=== PATIENT | male | born 1975 | race Caucasian/White ===

== ENCOUNTER 2017-06-19 21:55 | Inpatient (IN) | payer OTHER ==
--- NOTE | 2017-06-19 22:17 | Emergency Department Report ---
ED Abdominal Pain HPI - General Stated Complaint: KIDNEY STONES Time Seen by Provider: 06/19/17 22:09 Source: patient, old records reviewed (see hpi) Mode of arrival: Stretcher Limitations: No Limitations - History of Present Illness Initial Comments: 41-year-old male with a past medical history hypertension and recent diagnosis of left-sided kidney stone presented to the hospital after transfer from [facility] for retained stones and worsening pain. Yesterday patient was treated at [facility] (outpatient procedure) by [place] [facility] with lithotripsy. Today he presented to [place] with complaint of inability to urinate since 8 AM and left flank pain at 6 AM. No nausea, vomiting or fever reported. Patient was seen and treated at [facility] and accepted for transfer to [facility] after acceptance by Dr. Burris. See results of ED work up below. Patient complained of 10/10 left lower quadrant pain that is constant and requesting additional pain medicine. Patient states he has a sensitivity to codeine but can tolerate morphine and Dilaudid. Patient was seen at [facility] with complaint of left flank pain 6 this a.m. and hasn't urinated since 8 AM.. Patient received Pierce catheter, 1 L normal saline, Received multiple doses of Zofran, Demerol, and Stadol for pain. At 17:26 patient received Rocephin 1 g IV. Other provided results Labs from 06/19/2017 at 14:20 WBC 20.5 Hemoglobin 15.9 Hematocrit 47.1 Platelets 282 UA brown in color, cloudy, 1+ bilirubin, 1+ ketones, specific gravity 1.030, 3+ blood, pH 6.0, protein 2+. Nitrite negative, leukocyte esterase negative, WBC none, no bacteria were seen, no epithelial cells were seen. CMP Sodium 142, potassium 3.7, chloride 107, carbon dioxide 26, anion gap 9, glucose 143, BUN 11, creatinine 1.0, LFTs in normal range CT abdomen and pelvis without contrast impression: Nonobstructing calculus in the lower pole of the left kidney. Calcific debris from the left renal pelvis. Left hydronephrosis and hydroureter. Calcific debris in the left ureter at the pelvic inlet. Multiple calculi in the distal left ureter consistent steinstrasse. Ureter is dilated to the UVJ. Calculus at the left UVJ or just within the urinary bladder. Iperce catheter in place. - Related Data Allergies Allergy/AdvReac Type Severity Reaction Status Date / Time codeine Allergy Nausea Verified 06/19/17 22:23 ED Review of Systems ROS: Stated complaint: KIDNEY STONES Other details as noted in HPI Comment: All other systems reviewed and negative Other: Constitutional: No fevers chills Eyes: No eye pain visual changes ENT: No ear pain or throat pain Neck: Denies pain Respiratory: Denies cough wheezing shortness of breath Cardiovascular: Denies chest pain, palpitations, syncope GI: as per hpi : as per hpo Musculoskeletal: left flank pain Skin: Denies rash, lesions, erythema Neurologic: Denies headache, numbness, weakness Psychiatric: Denies suicidal ideation, hallucinations ED Physical Exam - Other Other exam information: General: No limitations, patient is alert in no acute distress Head exam: Atraumatic, normocephalic Eyes exam: Normal appearance ENT: Moist mucous membrane Neck exam: Normal inspection Respiratory exam: Clear to auscultation bilateral, no wheezes, rales, crackles Cardiovascular: Normal rate and rhythm, normal heart sounds Abdomen: Soft, nondistended, left lower quadrant tenderness Extremity: Full range of motion normal inspection no deformity Back: Normal Inspection, full range of motion, flank tenderness Neurologic: Alert, oriented x3, cranial nerves intact, no motor or sensory deficit Psychiatric: normal affect, normal mood Skin: Warm, dry, intact ED Course Vital Signs 06/19/17 06/19/17 22:05 22:10 Temperature 98.6 F Pulse Rate 79 116 H Respiratory 19 18 Rate Blood Pressure 166/107 Blood Pressure 166/107 [Right] O2 Sat by Pulse 97 97 Oximetry - Reevaluation(s) Reevaluation #1: 06/19/17 22:28 Dilaudid and Zofran ordered - Consultations Consultation #1: 06/19/17 22:[address] Burris urologist who has accepted patient. Requests admission to the hospitalist service. Requested nothing by mouth for possible stenting and a ED Medical Decision Making - Medical Decision Making Patient requires admission to the hospital for additional urology intervention given obstruction despite lithotripsy and significant leukocytosis. Patient received antibiotics prior to arrival. Urology has been consulted. Hospitalist informed. Patient treated for pain in the ED - Differential Diagnosis renal colic, obstructive uropathy, UTI, sepsis Critical Care Time: No Critical care attestation.: If time is entered above; I have spent that time in minutes in the direct care of this critically ill patient, excluding procedure time. ED Disposition Clinical Impression: Obstructive uropathy, Status post laser lithotripsy of ureteral calculus, Renal colic on left side, Leukocytosis, Urinary retention Disposition: OP ADMIT IP TO THIS HOSP Is pt being admited?: Yes Condition: Stable Time of Disposition: 22:40 (Dr Ty/[facility])
[2017-06-19] MEDS ORDERED: DILAUDID IV ONE ×2 (22:21→23:10)
[2017-06-19] MEDS ORDERED: ZOFRAN IV ONE (22:21)
[2017-06-19] MEDS ORDERED: DULCOLAX PR PRN (23:31)
[2017-06-19] MEDS ORDERED: TYLENOL PO PRN (23:31)
--- NOTE | 2017-06-19 23:31 | History and Physical Report ---
History of Present Illness Date of examination: 06/19/17 Date of admission: 06/19/17 Chief complaint: left flank pain History of present illness: patient is 41 year-old with history of hypertension with kidney stone. He had lithotripsy done yesterday at [facility] by a urologist as an outpatient. After he went home next day, which is today, started having more pain in the left flank and difficulty passing urine. He went to his local hospital [facility] . Over there a CT showed non-obstructing stone left kidney, left hydronephrosis and left hydroureter. The hospital called on urologist Dr. Burris, who then accepted patient to be transferred to the emergency department from [facility]. All labs and CT Abd report done today in paper chart so most not repeated. He cary be admitted. ED Physician discussed with Dr. Fatuma may. Past History Past Medical History: hypertension, other (Left kidney stone) Past Surgical History: Other (Lithotripsy 06/18/17) Social history: single, smoking, alcohol abuse (Alcohol occasionally), full code Family history: cancer, diabetes, hypertension Medications and Allergies Allergies Allergy/AdvReac Type Severity Reaction Status Date / Time codeine Allergy Nausea Verified 06/19/17 22:23 Active Meds: Active Medications Hydromorphone HCl (Dilaudid) 2 mg IV Q4HR PRN PRN Reason: Severe Pain Review of Systems All systems: negative (no fever, no headache, no nausea, no cough, or syncope. All other systems reviewed and are negative) Exam - Physical Exam Narrative exam: Gen Appearance: Not in acute distress, HEENT: normocephalic, atraumatic Neck: supple, no JVD Lungs: Clear to auscultation, bilaterally, no rales, no wheeze Heart: S1 and S2 regular, no murmurs,no rubs or gallop, Abdomen: Soft , tender left flank, non distended, normal bowel sounds Extremity: No edema, no clubbing or cyanosis, Neuro : Awake,alert, oriented x 3, moves all extremities - Constitutional Vitals: Temp Pulse Resp BP Pulse Ox 98.2 F 80 16 170/99 97 06/19/17 23:10 06/19/17 23:10 06/19/17 23:10 06/19/17 23:10 06/19/17 23:10 Results - Labs CBC & Chem 7: 06/19/17 23:45 06/19/17 23:37 Assessment and Plan Left renal colic with left kidney stone. Admit to medical surgical floor. Start IV fluids. Dilaudid IV when necessary for pain management. Dr. Burris consulted . Keep NPO after Midnight for likely surgery in morning. Left hydronephrosis due to renal stone.. Pierce catheter in . Left hydroureter. Urology to evaluate. UTI. Rocephin iv daily. He received a dose at [facility] before coming here today. Leukocytosis due to UTI. hypernatremia. start iv fluids Hypertensive urgency. Start Norvasc 5 mg by mouth daily. Give hydralazine iv prn. DVT prophylaxis. SCDs only. Not given anticoagulation because most likely going for surgery soon. Full CODE STATUS
[2017-06-19] MEDS ORDERED: APRESOLINE IV PRN (23:33)
[2017-06-20 00:10] LABS: Hematocrit 45.3 % (35.5-45.6); Hemoglobin 15.2 gm/dl (11.8-15.2); Mean Corpuscular HGB Conc 34 % (32-34); Mean Corpuscular Hemoglobin 32 pg (28-32); Mean Corpuscular Volume 96 fl (84-94); Platelet Count 272 K/mm3 (140-440); Red Blood Count 4.72 M/mm3 (3.65-5.03); Red Cell Distribution Width 13.4 % (13.2-15.2); White Blood Count 15.7 K/mm3 (4.5-11.0)
[2017-06-20] MEDS: NORVASC PO SCH ×2 (00:19→10:00)
[2017-06-20] MEDS ORDERED: NORVASC ONE (00:21)
[2017-06-20 00:27] LABS: Alanine Aminotransferase 8 units/L (7-56); Albumin 3.9 g/dL (3.9-5); Albumin/Globulin Ratio 1.4 %; Alkaline Phosphatase 83 units/L (35-129); Anion Gap 19 mmol/L; Blood Urea Nitrogen 11 mg/dL (9-20); Calcium 9.1 mg/dL (8.4-10.2); Carbon Dioxide 23 mmol/L (22-30); Chloride 108.2 mmol/L (98-107); Glucose 127 mg/dL (75-100); Potassium 3.9 mmol/L (3.6-5.0); Sodium 146 mmol/L (137-145); Total Protein 6.7 g/dL (6.3-8.2)
[2017-06-20] MEDS: DILAUDID IV PRN ×6 (01:17→21:49)
[2017-06-20] MEDS: D5/0.45NS 1,000 ML IV SCH ×2 (01:28→15:17)
[2017-06-20] MEDS: ZOFRAN IV PRN ×2 (05:15→17:35)
--- NOTE | 2017-06-20 08:11 | Progress Note ---
<TRINHIVAN GUADALUPE - Last Filed: 06/20/17 15:03> Assessment and Plan Assessment and plan: Left renal colic with left kidney stone. Admit to medical surgical floor. Keep NPO most likely will have surgery today. Continue on IV fluids. Dilaudid IV when necessary for pain management. Following by Urology Left hydronephrosis obstructive uropathy Secondary to renal stone. Continue Pierce catheter . Left hydroureter Follow by Urology . Urinary tract infection Follow cultures Continue on empiric treatment IV Rocephin iv daily. IV fluid hydration Supportive care Leukocytosis Secondary to UTI We will repeat BMP Closely monitor CBC hypernatremia Most likely due to poor intake Continue on IV fluid Closely monitor electrolytes Hypertensive urgency Continue on Norvasc 5 mg by mouth daily. IV hydralazine for SBP>160 Closely monitor blood pressure DVT prophylaxis SCDs only. Hold anticoagulation because most likely going for surgery soon. Full CODE STATUS Plan discussed with patient, family and his nurse. History Interval history: Patient complians left flank pain and rated his pain level 5/10. lab's and nurse notes reviewed. Hospitalist Physical - Constitutional Vitals: Temp Pulse Resp BP Pulse Ox 98.4 F 91 H 20 154/96 96 06/20/17 07:14 06/20/17 07:14 06/20/17 07:14 06/20/17 07:14 06/20/17 07:14 General appearance: Present: no acute distress - EENT Eyes: Present: PERRL ENT: hearing intact - Neck Neck: Present: supple - Respiratory Respiratory effort: normal Respiratory: bilateral: CTA - Cardiovascular Heart rate: 91 Rhythm: regular Heart Sounds: Present: S1 & S2 - Extremities Extremities: no ischemia Peripheral Pulses: within normal limits - Abdominal General gastrointestinal: soft, non-tender - Integumentary Integumentary: Present: clear, warm, dry - Psychiatric Psychiatric: appropriate mood/affect - Neurologic Neurologic: CNII-XII intact - Allied Health Allied health notes reviewed: nursing Results - Labs CBC & Chem 7: 06/19/17 23:45 06/19/17 23:37 Labs: Laboratory Last Values WBC 15.7 K/mm3 (4.5-11.0) H 06/19/17 23:45 RBC 4.72 M/mm3 (3.65-5.03) 06/19/17 23:45 Hgb 15.2 gm/dl (11.8-15.2) 06/19/17 23:45 Hct 45.3 % (35.5-45.6) 06/19/17 23:45 MCV 96 fl (84-94) H 06/19/17 23:45 MCH 32 pg (28-32) 06/19/17 23:45 MCHC 34 % (32-34) 06/19/17 23:45 RDW 13.4 % (13.2-15.2) 06/19/17 23:45 Plt Count 272 K/mm3 (140-440) 06/19/17 23:45 Sodium 146 mmol/L (137-145) H 06/19/17 23:37 Potassium 3.9 mmol/L (3.6-5.0) 06/19/17 23:37 Chloride 108.2 mmol/L (98-107) H 06/19/17 23:37 Carbon Dioxide 23 mmol/L (22-30) 06/19/17 23:37 Anion Gap 19 mmol/L 06/19/17 23:37 BUN 11 mg/dL (9-20) 06/19/17 23:37 Creatinine 1.0 mg/dL (0.8-1.5) 06/19/17 23:37 Estimated GFR > 60 ml/min 06/19/17 23:37 BUN/Creatinine Ratio 11.00 % 06/19/17 23:37 Glucose 127 mg/dL (75-100) H 06/19/17 23:37 Calcium 9.1 mg/dL (8.4-10.2) 06/19/17 23:37 Total Bilirubin 0.40 mg/dL (0.1-1.2) 06/19/17 23:37 AST 15 units/L (5-40) 06/19/17 23:37 ALT 8 units/L (7-56) 06/19/17 23:37 Alkaline Phosphatase 83 units/L (35-129) 06/19/17 23:37 Total Protein 6.7 g/dL (6.3-8.2) 06/19/17 23:37 Albumin 3.9 g/dL (3.9-5) 06/19/17 23:37 Albumin/Globulin Ratio 1.4 % 06/19/17 23:37 <ORION MORRISSEY - Last Filed: 06/20/17 16:08> Hospitalist Physical - Constitutional Vitals: Temp Pulse Resp BP Pulse Ox 98.2 F 85 18 154/96 97 06/20/17 11:26 06/20/17 11:26 06/20/17 11:26 06/20/17 07:14 06/20/17 11:26 Results - Labs CBC & Chem 7: 06/19/17 23:45 06/19/17 23:37 Labs: Laboratory Last Values WBC 15.7 K/mm3 (4.5-11.0) H 06/19/17 23:45 RBC 4.72 M/mm3 (3.65-5.03) 06/19/17 23:45 Hgb 15.2 gm/dl (11.8-15.2) 06/19/17 23:45 Hct 45.3 % (35.5-45.6) 06/19/17 23:45 MCV 96 fl (84-94) H 06/19/17 23:45 MCH 32 pg (28-32) 06/19/17 23:45 MCHC 34 % (32-34) 06/19/17 23:45 RDW 13.4 % (13.2-15.2) 06/19/17 23:45 Plt Count 272 K/mm3 (140-440) 06/19/17 23:45 Sodium 146 mmol/L (137-145) H 06/19/17 23:37 Potassium 3.9 mmol/L (3.6-5.0) 06/19/17 23:37 Chloride 108.2 mmol/L (98-107) H 06/19/17 23:37 Carbon Dioxide 23 mmol/L (22-30) 06/19/17 23:37 Anion Gap 19 mmol/L 06/19/17 23:37 BUN 11 mg/dL (9-20) 06/19/17 23:37 Creatinine 1.0 mg/dL (0.8-1.5) 06/19/17 23:37 Estimated GFR > 60 ml/min 06/19/17 23:37 BUN/Creatinine Ratio 11.00 % 06/19/17 23:37 Glucose 127 mg/dL (75-100) H 06/19/17 23:37 Calcium 9.1 mg/dL (8.4-10.2) 06/19/17 23:37 Total Bilirubin 0.40 mg/dL (0.1-1.2) 06/19/17 23:37 AST 15 units/L (5-40) 06/19/17 23:37 ALT 8 units/L (7-56) 06/19/17 23:37 Alkaline Phosphatase 83 units/L (35-129) 06/19/17 23:37 Total Protein 6.7 g/dL (6.3-8.2) 06/19/17 23:37 Albumin 3.9 g/dL (3.9-5) 06/19/17 23:37 Albumin/Globulin Ratio 1.4 % 06/19/17 23:37
[2017-06-20] MEDS: ROCEPHIN/NS 1 GM/50 ML 1 GM/50 ML BAG IV SCH (10:00)
--- NOTE | 2017-06-20 11:00 | Consultation ---
History of Present Illness - Reason for Consult Consult date: 06/20/17 - History of Present Illness 41-year-old male with a past medical history hypertension and recent diagnosis of left-sided kidney stone presented to the hospital after transfer from [facility] for retained stones and worsening pain. Yesterday patient was treated at [facility] (outpatient procedure) by [place] [facility] with lithotripsy. Today he presented to [place] with complaint of inability to urinate since 8 AM and left flank pain at 6 AM. No nausea, vomiting or fever reported. Patient was seen and treated at [facility] and accepted for transfer to [facility] after acceptance by Dr. Burris. See results of ED work up below. Patient complained of 10/10 left lower quadrant pain that is constant and requesting additional pain medicine. Patient states he has a sensitivity to codeine but can tolerate morphine and Dilaudid. Patient was seen at [facility] with complaint of left flank pain 6 this a.m. and hasn't urinated since 8 AM.. Patient received Pierce catheter, 1 L normal saline, Received multiple doses of Zofran, Demerol, and Stadol for pain. At 17:26 patient received Rocephin [address] Corey eLe in the office [facility] tuesday06-18-17 A/P control pain KUB may need repeat CTAP Past History Past Medical History: hypertension, other (Left kidney stone) Past Surgical History: Other (Lithotripsy 06/18/17) Social history: single, smoking, alcohol abuse (Alcohol occasionally), full code Family history: cancer, diabetes, hypertension Medications and Allergies Allergies Allergy/AdvReac Type Severity Reaction Status Date / Time codeine Allergy Nausea Verified 06/19/17 22:23 Active Meds: Active Medications Acetaminophen (Tylenol) 650 mg PO Q4H PRN PRN Reason: Pain MILD(1-3)/Fever >100.5/ROACH Amlodipine Besylate (Norvasc) 5 mg PO QDAY DESHAWN Last Admin: 06/20/17 00:19 Dose: 5 mg Bisacodyl (Dulcolax) 10 mg VT QDAY PRN PRN Reason: Constipation unrelieved by MOM Hydralazine HCl (Apresoline) 10 mg IV Q4HR PRN PRN Reason: For SBP>165 or DBP>105 Last Admin: 06/20/17 01:15 Dose: 10 mg Hydralazine HCl (Apresoline) 25 mg PO Q8HR DESHAWN Hydromorphone HCl (Dilaudid) 2 mg IV Q4HR PRN PRN Reason: Severe Pain Last Admin: 06/20/17 08:58 Dose: 2 mg Ceftriaxone Sodium (Rocephin/Ns 1 Gm/50 Ml) 1 gm in 50 mls @ 100 mls/hr IV Q24HR DESHAWN PRN Reason: Protocol Dextrose/Sodium Chloride (D5/0.45ns) 1,000 mls @ 75 mls/hr IV DIRECT DESHAWN Last Admin: 06/20/17 01:28 Dose: 75 mls/hr Ondansetron HCl (Zofran) 4 mg IV Q6H PRN PRN Reason: nausea or vomiting Last Admin: 06/20/17 05:15 Dose: 4 mg Exam - Constitutional Vitals: Temp Pulse Resp BP Pulse Ox 98.4 F 91 H 20 154/96 96 06/20/17 07:14 06/20/17 07:14 06/20/17 07:14 06/20/17 07:14 06/20/17 07:14 Results - Labs CBC & Chem 7: 06/19/17 23:45 06/19/17 23:37 Labs: Abnormal lab results 06/19/17 06/19/17 Range/Units 23:37 23:45 WBC 15.7 H (4.5-11.0) K/mm3 MCV 96 H (84-94) fl Sodium 146 H (137-145) mmol/L Chloride 108.2 H (98-107) mmol/L Glucose 127 H (75-100) mg/dL
--- NOTE | 2017-06-20 12:12 | XRay Report ---
SUPINE KUB: History: Flank pain. The abdominal gas pattern is unremarkable. No masses or organomegaly is identified and there is no gross evidence of free air or fluid. At least one calcification measuring 7 mm overlies the inferior pole of the left kidney consistent with left nephrolithiasis. IMPRESSION: Left nephrolithiasis.
--- NOTE | 2017-06-20 12:24 | Cat Scan Report ---
CT scan of abdomen and pelvis without IV contrast: History: Bilateral flank pain. Left kidney stone. Findings: Normal lung bases. No pleural or pericardial effusion. Normal liver spleen pancreas and gallbladder. Normal adrenals. There is nonobstructing 3 mm calculus left kidney. There is also noted tiny calculi in the pelvis of left ureter. Dilated left ureter with 2 calculi at the distal left ureter proximal to the bladder. Thick walled urinary bladder with in situ catheter. Calcification in prostate. Gaseous colon with stool in colon. No bowel distention. Free fluid in the peritoneum anterior to rectum. Impression: Nonobstructing calculi left kidney calculi with 2 calculi distal left ureter causing obstruction and hydronephrosis. Thick walled urinary bladder from decompression or cystitis.
[2017-06-20] MEDS: LEVAQUIN 500MG/100ML 500 MG/100 ML BAG IV SCH (12:35)
[2017-06-20] MEDS: APRESOLINE PO SCH ×3 (13:46→21:48)
[2017-06-21] MEDS ORDERED: WATER FOR IRRIG STERILE IR ONE
[2017-06-21] MEDS: DILAUDID IV PRN ×8 (02:14→21:58)
[2017-06-21] MEDS: ZOFRAN IV PRN ×2 (02:15→09:21)
[2017-06-21] MEDS: D5/0.45NS 1,000 ML IV SCH ×2 (04:55→23:20)
[2017-06-21] MEDS: APRESOLINE PO SCH ×3 (05:02→21:52)
[2017-06-21 05:20] LABS: Basophils % (Auto) 0.3 % (0.0-1.8); Eosinophils % (Auto) 0.1 % (0.0-4.3); Hematocrit 46.8 % (35.5-45.6); Hemoglobin 15.9 gm/dl (11.8-15.2); Mean Corpuscular HGB Conc 34 % (32-34); Mean Corpuscular Hemoglobin 32 pg (28-32); Mean Corpuscular Volume 95 fl (84-94); Platelet Count 240 K/mm3 (140-440); Red Blood Count 4.91 M/mm3 (3.65-5.03); Red Cell Distribution Width 13.4 % (13.2-15.2); White Blood Count 18.7 K/mm3 (4.5-11.0)
[2017-06-21 05:37] LABS: Anion Gap 16 mmol/L; BUN/Creatinine Ratio 11; Blood Urea Nitrogen 11 mg/dL (9-20); Calcium 9.4 mg/dL (8.4-10.2); Carbon Dioxide 25 mmol/L (22-30); Glucose 115 mg/dL (75-100)
[2017-06-21 07:29] LABS: Sodium 138 mmol/L (137-145)
[2017-06-21] MEDS: NORVASC PO SCH (09:22)
[2017-06-21] MEDS: ROCEPHIN/NS 1 GM/50 ML 1 GM/50 ML BAG IV SCH (10:00)
[2017-06-21] MEDS: LEVAQUIN 500MG/100ML 500 MG/100 ML BAG IV SCH (10:47)
--- NOTE | 2017-06-21 13:39 | Progress Note ---
Assessment and Plan Assessment and plan: Obstructive left ureteric calculi Ureteric colic Hydronephrosis Sepsis secondary to UTI Hypertensive urgency - Neurology is consulted and they willing to do surgery - Patient is on IV fluids, IV antibiotics, pain control DVT prophylaxis - SCDs, will start him on heparin after the procedure Disposition - Continue inpatient care History Interval history: Patient was seen and evaluated this morning, patient is complaining left-sided flank pain. Hospitalist Physical - Physical exam Narrative exam: Not in cardiopulmonary distress. The patient appeared well nourished and normally developed. Vital signs as documented. Head exam is unremarkable. No scleral icterus . Neck is without jugular venous distension, thyromegaly, or carotid bruits. Lungs are clear to auscultation. Cardiac exam reveals regular rate and Rhythm. First and second heart sounds normal. No murmurs, rubs or gallops. Abdominal exam reveals left flank and groin tenderness. Extremities are nonedematous and both femoral and pedal pulses are normal. [employer]: Alert and oriented 3. No focal weakness. - Constitutional Vitals: Temp Pulse Resp BP Pulse Ox 99.3 F 100 H 16 157/100 94 06/21/17 06:54 06/21/17 09:22 06/21/17 06:54 06/21/17 09:22 06/21/17 06:54 General appearance: Present: no acute distress Results - Labs CBC & Chem 7: 06/21/17 04:44 06/21/17 04:44 Labs: Laboratory Last Values WBC 18.7 K/mm3 (4.5-11.0) H 06/21/17 04:44 RBC 4.91 M/mm3 (3.65-5.03) 06/21/17 04:44 Hgb 15.9 gm/dl (11.8-15.2) H 06/21/17 04:44 Hct 46.8 % (35.5-45.6) H 06/21/17 04:44 MCV 95 fl (84-94) H 06/21/17 04:44 MCH 32 pg (28-32) 06/21/17 04:44 MCHC 34 % (32-34) 06/21/17 04:44 RDW 13.4 % (13.2-15.2) 06/21/17 04:44 Plt Count 240 K/mm3 (140-440) 06/21/17 04:44 Lymph % (Auto) 6.2 % (13.4-35.0) L 06/21/17 04:44 Boyd % (Auto) 12.8 % (0.0-7.3) H 06/21/17 04:44 Eos % (Auto) 0.1 % (0.0-4.3) 06/21/17 04:44 Baso % (Auto) 0.3 % (0.0-1.8) 06/21/17 04:44 Lymph # 1.2 K/mm3 (1.2-5.4) 06/21/17 04:44 Boyd # 2.4 K/mm3 (0.0-0.8) H 06/21/17 04:44 Eos # 0.0 K/mm3 (0.0-0.4) 06/21/17 04:44 Baso # 0.1 K/mm3 (0.0-0.1) 06/21/17 04:44 Seg Neutrophils % 80.6 % (40.0-70.0) H 06/21/17 04:44 Seg Neutrophils # 15.1 K/mm3 (1.8-7.7) H 06/21/17 04:44 Sodium 138 mmol/L (137-145) D 06/21/17 04:44 Potassium 4.0 mmol/L (3.6-5.0) 06/21/17 04:44 Chloride 101.0 mmol/L (98-107) 06/21/17 04:44 Carbon Dioxide 25 mmol/L (22-30) 06/21/17 04:44 Anion Gap 16 mmol/L 06/21/17 04:44 BUN 11 mg/dL (9-20) 06/21/17 04:44 Creatinine 1.0 mg/dL (0.8-1.5) 06/21/17 04:44 Estimated GFR > 60 ml/min 06/21/17 04:44 BUN/Creatinine Ratio 11 % 06/21/17 04:44 Glucose 115 mg/dL (75-100) H 06/21/17 04:44 Calcium 9.4 mg/dL (8.4-10.2) 06/21/17 04:44 Magnesium 1.70 mg/dL (1.7-2.3) 06/21/17 04:44 Total Bilirubin 0.40 mg/dL (0.1-1.2) 06/19/17 23:37 AST 15 units/L (5-40) 06/19/17 23:37 ALT 8 units/L (7-56) 06/19/17 23:37 Alkaline Phosphatase 83 units/L (35-129) 06/19/17 23:37 Total Protein 6.7 g/dL (6.3-8.2) 06/19/17 23:37 Albumin 3.9 g/dL (3.9-5) 06/19/17 23:37 Albumin/Globulin Ratio 1.4 % 06/19/17 23:37
[2017-06-21] MEDS ORDERED: ZOFRAN IV PRN (14:05)
[2017-06-21] MEDS ORDERED: DILAUDID IV NR (14:41)
--- NOTE | 2017-06-21 14:45 | Anesthesia Day of Surgery ---
Anesthesia Day of Surgery - Day of Surgery Patient Examined: Yes Patient H&P Reviewed: Yes Patient is NPO: Yes
--- NOTE | 2017-06-21 14:46 | Anesthesia Consultation ---
Anesthesia Consult and Med Hx Date of service: 06/21/17 - Airway Anesthetic Teeth Evaluation: Poor (missing top teeth) ROM Head & Neck: Adequate Mental/Hyoid Distance: Adequate Mallampati Class: Class II Intubation Access Assessment: Probably Good - Pulmonary Exam CTA: Yes - Cardiac Exam Cardiac Exam: RRR - Pre-Operative Health Status ASA Pre-Surgery Classification: ASA2 Proposed Anesthetic Plan: General - Pulmonary Hx Smoking: Yes (2 cigs/day) Hx Asthma: No COPD: No - Cardiovascular System Hx Hypertension: Yes Hx Heart Attack/AMI: No Hx Pacemaker: No Hx Internal Defibrillator: No - Central Nervous System Hx Seizures: No - Endocrine Hx Renal Disease: Yes (stones) Hx Liver Disease: No - Hematic Hx Sickle Cell Disease: No
[2017-06-21] MEDS ORDERED: NACL 0.9% 1000 ML 1,000 ML IV SCH (15:00)
[2017-06-21] MEDS ORDERED: VERSED IV NR (15:00)
[2017-06-21] MEDS ORDERED: PEPCID PO NR (15:00)
[2017-06-21] MEDS ORDERED: DECADRON ONE (15:00)
[2017-06-21] MEDS ORDERED: ZOFRAN ONE (15:00)
[2017-06-21] MEDS ORDERED: XYLOCAINE MPF 2% ONE (15:48)
[2017-06-21] MEDS ORDERED: DIPRIVAN 10 MG/ML IV ONE (15:48)
[2017-06-21] MEDS ORDERED: SUBLIMAZE ONE (15:48)
--- NOTE | 2017-06-21 17:01 | Post Operative Note ---
Pre-op diagnosis: LEFT URET STEINSTRASSE STONE Post-op diagnosis: same Findings: same, pur Procedure: left urs, stent, 6x28, brpg Anesthesia: GETA Surgeon: CARIE RALPH Estimated blood loss: minimal Specimen disposition: to lab Condition: stable Disposition: PACU
--- NOTE | 2017-06-21 17:20 | Post Anesthesia Evaluation ---
- Post Anesthesia Evaluation Patient Participated: Yes Airway Patent: Yes Stable Respiratory Function: Yes Nausea/Vomiting: No Temp > 96.8F: Yes Pain Manageable: Yes Adequeate Hydration: Yes Anesthesia Complications: No Block Receding Appropriately: Not Applicable Patient on Ventilator: No
[2017-06-22 06:08] LABS: Basophils % (Auto) 0.5 % (0.0-1.8); Hematocrit 40.7 % (35.5-45.6); Hemoglobin 14.3 gm/dl (11.8-15.2); Mean Corpuscular HGB Conc 35 % (32-34); Mean Corpuscular Hemoglobin 33 pg (28-32); Mean Corpuscular Volume 94 fl (84-94); Platelet Count 218 K/mm3 (140-440); Red Blood Count 4.33 M/mm3 (3.65-5.03); Red Cell Distribution Width 13.4 % (13.2-15.2); White Blood Count 14.2 K/mm3 (4.5-11.0)
[2017-06-22] MEDS: APRESOLINE PO SCH ×3 (06:08→21:12)
[2017-06-22 06:37] LABS: Anion Gap 17 mmol/L; BUN/Creatinine Ratio 11; Blood Urea Nitrogen 9 mg/dL (9-20); Calcium 9.2 mg/dL (8.4-10.2); Carbon Dioxide 24 mmol/L (22-30); Chloride 103.8 mmol/L (98-107); Glucose 113 mg/dL (75-100); Potassium 4.1 mmol/L (3.6-5.0); Sodium 141 mmol/L (137-145)
--- NOTE | 2017-06-22 09:53 | Fluoroscopy Report ---
RETROGRADE PYELOGRAM: History: Left ureteral stones. Findings: Fluoroscopy was provided by radiology during retrograde urography by urology. 10 fluoroscopic images were captured. The right pyelogram is normal. Subtle filling defects are identified in the left ureter consistent with mildly obstructing left ureteral stones. The stones were removed by the physician. Left ureteroscopy was performed. A left ureteral stent was placed which is in good position and adequately drains the left collecting system on the final image. Impression: Left ureteral stone removal. Left ureteral stent placement.
[2017-06-22] MEDS: DILAUDID IV PRN ×3 (10:19→21:03)
[2017-06-22] MEDS: LEVAQUIN 500MG/100ML 500 MG/100 ML BAG IV SCH (10:20)
[2017-06-22] MEDS: NORVASC PO SCH (10:20)
--- NOTE | 2017-06-22 14:03 | Progress Note ---
Assessment and Plan Assessment and plan: Obstructive left ureteric calculi - Status post left ureteric stone removal and stent placement Ureteric colic - Patient is controlled after the procedure Hydronephrosis Sepsis secondary to UTI - Patient is on IV antibiotics and WBCs trending down Hypertensive urgency - Controlled DVT prophylaxis -On heparin Disposition - Continue inpatient care, possible discharge tomorrow. History Interval history: Patient was seen and evaluated this morning, patient's pain is improved remarkably after surgery. Hospitalist Physical - Physical exam Narrative exam: Not in cardiopulmonary distress. The patient appeared well nourished and normally developed. Vital signs as documented. Head exam is unremarkable. No scleral icterus . Neck is without jugular venous distension, thyromegaly, or carotid bruits. Lungs are clear to auscultation. Cardiac exam reveals regular rate and Rhythm. First and second heart sounds normal. No murmurs, rubs or gallops. Abdominal exam reveals soft, non-tender. Extremities are nonedematous and both femoral and pedal pulses are normal. 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 No focal weakness. - Constitutional Vitals: Temp Pulse Resp BP Pulse Ox 98.9 F 102 H 18 153/85 94 06/22/17 07:49 06/22/17 07:49 06/22/17 07:49 06/22/17 07:49 06/22/17 07:49 General appearance: Present: no acute distress Results - Labs CBC & Chem 7: 06/22/17 05:55 06/22/17 05:55 Labs: Laboratory Last Values WBC 14.2 K/mm3 (4.5-11.0) H 06/22/17 05:55 RBC 4.33 M/mm3 (3.65-5.03) 06/22/17 05:55 Hgb 14.3 gm/dl (11.8-15.2) 06/22/17 05:55 Hct 40.7 % (35.5-45.6) D 06/22/17 05:55 MCV 94 fl (84-94) 06/22/17 05:55 MCH 33 pg (28-32) H 06/22/17 05:55 MCHC 35 % (32-34) H 06/22/17 05:55 RDW 13.4 % (13.2-15.2) 06/22/17 05:55 Plt Count 218 K/mm3 (140-440) 06/22/17 05:55 Lymph % (Auto) 8.5 % (13.4-35.0) L 06/22/17 05:55 [place] % (Auto) 13.6 % (0.0-7.3) H 06/22/17 05:55 Eos % (Auto) 0.0 % (0.0-4.3) 06/22/17 05:55 Baso % (Auto) 0.5 % (0.0-1.8) 06/22/17 05:55 Lymph # 1.2 K/mm3 (1.2-5.4) 06/22/17 05:55 [place] # 1.9 K/mm3 (0.0-0.8) H 06/22/17 05:55 Eos # 0.0 K/mm3 (0.0-0.4) 06/22/17 05:55 Baso # 0.1 K/mm3 (0.0-0.1) 06/22/17 05:55 Seg Neutrophils % 77.4 % (40.0-70.0) H 06/22/17 05:55 Seg Neutrophils # 11.0 K/mm3 (1.8-7.7) H 06/22/17 05:55 Sodium 141 mmol/L (137-145) 06/22/17 05:55 Potassium 4.1 mmol/L (3.6-5.0) 06/22/17 05:55 Chloride 103.8 mmol/L (98-107) 06/22/17 05:55 Carbon Dioxide 24 mmol/L (22-30) 06/22/17 05:55 Anion Gap 17 mmol/L 06/22/17 05:55 BUN 9 mg/dL (9-20) 06/22/17 05:55 Creatinine 0.8 mg/dL (0.8-1.5) 06/22/17 05:55 Estimated GFR > 60 ml/min 06/22/17 05:55 BUN/Creatinine Ratio 11 % 06/22/17 05:55 Glucose 113 mg/dL (75-100) H 06/22/17 05:55 Calcium 9.2 mg/dL (8.4-10.2) 06/22/17 05:55 Magnesium 1.70 mg/dL (1.7-2.3) 06/21/17 04:44 Total Bilirubin 0.40 mg/dL (0.1-1.2) 06/19/17 23:37 AST 15 units/L (5-40) 06/19/17 23:37 ALT 8 units/L (7-56) 06/19/17 23:37 Alkaline Phosphatase 83 units/L (35-129) 06/19/17 23:37 Total Protein 6.7 g/dL (6.3-8.2) 06/19/17 23:37 Albumin 3.9 g/dL (3.9-5) 06/19/17 23:37 Albumin/Globulin Ratio 1.4 % 06/19/17 23:37 WBC dropped from 18-14
[2017-06-22] MEDS: ZOFRAN IV PRN (17:50)
[2017-06-22] MEDS: D5/0.45NS 1,000 ML IV SCH (17:51)
[2017-06-23 04:45] LABS: Basophils % (Auto) 0.8 % (0.0-1.8); Eosinophils % (Auto) 0.5 % (0.0-4.3); Hematocrit 42.8 % (35.5-45.6); Hemoglobin 14.5 gm/dl (11.8-15.2); Mean Corpuscular HGB Conc 34 % (32-34); Mean Corpuscular Hemoglobin 32 pg (28-32); Mean Corpuscular Volume 95 fl (84-94); Platelet Count 286 K/mm3 (140-440); Red Blood Count 4.49 M/mm3 (3.65-5.03); Red Cell Distribution Width 13.7 % (13.2-15.2); White Blood Count 9.4 K/mm3 (4.5-11.0)
[2017-06-23 04:54] LABS: Anion Gap 17 mmol/L; BUN/Creatinine Ratio 20; Blood Urea Nitrogen 12 mg/dL (9-20); Calcium 9.1 mg/dL (8.4-10.2); Carbon Dioxide 25 mmol/L (22-30); Chloride 103.8 mmol/L (98-107); Glucose 102 mg/dL (75-100); Potassium 3.7 mmol/L (3.6-5.0); Sodium 142 mmol/L (137-145)
[2017-06-23] MEDS: APRESOLINE PO SCH ×2 (06:41→13:19)
[2017-06-23] MEDS: D5/0.45NS 1,000 ML IV SCH (06:42)
[2017-06-23] MEDS: DILAUDID IV PRN ×2 (07:58→13:19)
--- NOTE | 2017-06-23 08:01 | Discharge Summary ---
Providers - Providers Date of Admission: 06/19/17 23:31 Date of discharge: 06/23/17 Attending physician: ELLIE MORGAN MD Primary care physician: STEM CUTTER Hospitalization Reason for admission: left ureteric caliculi Condition: Stable Pertinent studies: CT abdomen and pelvis Nonobstructingleft kidney calculi with 2 calculi distal left ureter causing obstruction and hydronephrosis. Hospital course: patient is 41 year-old with history of hypertension with kidney stone. He had lithotripsy done yesterday at [facility] by a urologist as an outpatient. After he went home next day, which is today, started having more pain in the left flank and difficulty passing urine. He went to his local hospital [facility] . Over there a CT showed non-obstructing stone left kidney, left hydronephrosis and left hydroureter. The hospital called on urologist Dr. Burris, who then accepted patient to be transferred to the emergency department from [facility]. All labs and CT Abd report done today in paper chart so most not repeated. He cary be admitted. ED Physician discussed with Dr. Fatuma may. Patient was admitted to the floor and he was started with IV fluids, pain medication and urology was consulted. Neurology did stone extraction and stent placement on the left ureter. Patient had urinary tract infection, sepsis and he was treated with IV Levaquin and will continue his treatment with by mouth Levaquin as outpatient. Patient is also given pain medication as an outpatient. Patient was hemodynamically stable at the time of discharge. Patient's questions and concerns were discussed at the bedside. Disposition: - TO HOME OR SELFCARE Time spent for discharge: 31 minutes - Discharge Diagnoses (1) Leukocytosis Status: Acute Qualifiers: Leukocytosis type: L (2) Obstructive uropathy Status: Acute (3) Renal colic on left side Status: Acute (4) Status post laser lithotripsy of ureteral calculus Status: Acute (5) Urinary retention Status: Acute Core Measure Documentation - Palliative Care Palliative Care/ Comfort Measures: Not Applicable - Core Measures Any of the following diagnoses?: none Exam - Physical Exam Narrative exam: Not in cardiopulmonary distress. The patient appeared well nourished and normally developed. Vital signs as documented. Head exam is unremarkable. No scleral icterus . Neck is without jugular venous distension, thyromegaly, or carotid bruits. Lungs are clear to auscultation. Cardiac exam reveals regular rate and Rhythm. First and second heart sounds normal. No murmurs, rubs or gallops. Abdominal exam reveals soft, non-tender. Extremities are nonedematous and both femoral and pedal pulses are normal. 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 No focal weakness. - Constitutional Vitals: Temp Pulse Resp BP Pulse Ox 99.9 F H 80 18 148/86 95 06/22/17 23:27 06/23/17 06:41 06/22/17 23:27 06/23/17 06:41 06/22/17 23:27 Plan Activity: no restrictions Weight Bearing Status: Full Weight Bearing Diet: regular Follow up with: PRIMARY CARE, [Primary Care Provider] - 7 Days Prescriptions: HYDROcodone/APAP 10-325 [[place] 10/325] 1 each PO Q6HR PRN #12 tablet PRN Reason: Pain Levofloxacin [Levaquin TAB] 500 mg PO QDAY #7 tablet
[2017-06-23] MEDS: LEVAQUIN 500MG/100ML 500 MG/100 ML BAG IV SCH (10:25)
[2017-06-23] MEDS: NORVASC PO SCH (10:25)
[2017-06-23 10:26] VITALS: BP 150/86
[2017-06-24] MEDS ORDERED: LEVAQUIN PO SCH (10:00)
== END 2017-06-23 15:00 | disposition home or self-care (01) | DRG 872 ==
LOC: ED 21:55 → 3A 23:31
PROVIDERS: ADMIT Internal Medicine; ATTEND Internal Medicine
PROC: 0T778DZ Dilation of Left Ureter with Intraluminal Device, Via Natural or Artificial Opening Endoscopic (ICD-10-PCS; principal; 2017-06-19)
PROC: BT1F1ZZ Fluoroscopy of Left Kidney, Ureter and Bladder using Low Osmolar Contrast (ICD-10-PCS; 2017-06-19)
DX: A41.9 Sepsis, unspecified organism (principal); N13.2 Hydronephrosis with renal and ureteral calculous obstruction; E87.0 Hyperosmolality and hypernatremia; N39.0 Urinary tract infection, site not specified; N13.9 Obstructive and reflux uropathy, unspecified; I10 Essential (primary) hypertension; D72.829 Elevated white blood cell count, unspecified; I16.0 Hypertensive urgency; F17.210 Nicotine dependence, cigarettes, uncomplicated; R33.9 Retention of urine, unspecified; Z80.9 Family history of malignant neoplasm, unspecified; Z87.442 Personal history of urinary calculi; Z83.3 Family history of diabetes mellitus; Z82.49 Family history of ischemic heart disease and other diseases of the circulatory system
CPT/HCPCS: 36415; 74000; 74176; 74420; 80048; 80053; 82365; 83735; 85025; 85027; 96374; 96375; 96376; A4217; C1726; C1758; C1769; C2617; J0360; J0696; J1100; J1170; J1956; J2250; J2405; J2704; J3010; J7030; Q9967